=== PATIENT | female | born 1980 ===

== ENCOUNTER 2019-01-03 15:33 | Outpatient (CLI) | payer OTHER, SELFPAY | END 2019-01-03 15:34 | disposition home or self-care (01) | LOC: C.MAMMO 15:33 | DX: Z12.31 Encounter for screening mammogram for malignant neoplasm of breast (principal) ==

== ENCOUNTER 2019-01-26 10:27 | Outpatient (CLI) | payer OTHER | END 2019-01-26 10:28 | disposition home or self-care (01) | LOC: C.MAMMO 10:28 | DX: R92.8 Other abnormal and inconclusive findings on diagnostic imaging of breast (principal) ==